=== PATIENT | male | born 1950 ===

== ENCOUNTER → 2018-11-05 | Outpatient (CLI) | payer MEDICARE | END | disposition home or self-care (01) | LOC: PLD 13:53 → LAB SHORT 13:53 | DX: C44.319 Basal cell carcinoma of skin of other parts of face (principal); C43.4 Malignant melanoma of scalp and neck | CPT/HCPCS: 88305 ==

== ENCOUNTER → 2018-12-09 | Outpatient (CLI) | payer MEDICARE | END | disposition home or self-care (01) | LOC: LAB SHORT 13:53 → PLD 13:53 | DX: D03.4 Melanoma in situ of scalp and neck (principal) | CPT/HCPCS: 88305 ==